=== PATIENT | male | born 1950 | race American Indian/Alaskan Native ===

== ENCOUNTER 2022-06-16 16:46 | Emergency (ER) | payer SELFPAY ==
[2022-06-16 16:52] VITALS: BP 124/77; PULSE 95; RESP 18; TEMP 97; BMI 29.0
== END 2022-06-16 22:03 | disposition home or self-care (01) ==
LOC: JERFT 16:46
DX: M79.605 Pain in left leg (principal)
CPT/HCPCS: 73610-TC-LT-FY; 73630-TC-LT; 93971-TC; 99284-25